=== PATIENT | male | born 1955 | race Caucasian/White ===

== ENCOUNTER 2016-09-08 22:27 | Emergency (ER) | payer MEDICARE, OTHER ==
[2016-09-08] MEDS ORDERED: FUROSEMIDE 40 MG SOL IV ONE (22:40)
[2016-09-08] MEDS ORDERED: SODIUM CHLORIDE 0.9% 1000ML 1,000 ML IV ONE (23:04)
[2016-09-08 23:06] LABS: BASOPHILS % (AUTO) 1 % (0-3); EOSINOPHILS % (AUTO) 3 % (0-9); HEMATOCRIT 29 % (39-53); MEAN CORPUSCULAR HGB CONC 35.2 gm/dl (32.0-36.0); MEAN CORPUSCULAR VOLUME 86 fL (80-100); MONOCYTES % (AUTO) 6.3 % (0-12); NEUTROPHILS % (AUTO) 78.8 % (37-80)
[2016-09-08] MEDS ORDERED: ACETAMINOPHEN 500 MG 500 MG TAB PO ONE (23:06)
[2016-09-08] MEDS ORDERED: OXYCODONE HYDROCHLORIDE 5 MG TAB PO ONE (23:06)
[2016-09-08] MEDS ORDERED: ACETAMINOPHEN 500 MG 500 MG TAB ONE (23:10)
[2016-09-08] MEDS ORDERED: SODIUM CHLORIDE 0.9% FLUSH 10 ML SOL IV PRN (23:13)
[2016-09-08] MEDS ORDERED: OXYCODONE HYDROCHLORIDE 5 MG TAB ONE (23:14)
[2016-09-08 23:21] LABS: CALCIUM 8.4 mg/dl (8.5-10.1); POTASSIUM 3.9 mMol/L (3.5-5.1)
[2016-09-08 23:22] VITALS: TEMP 98.8
[2016-09-08 23:23] LABS: THYROID STIMULATING HORMONE 6.251 uU/ml (0.358-3.740)
[2016-09-09 00:48] VITALS: BP 112/59; PULSE 61; RESP 20; O2SAT 95
== END 2016-09-09 00:50 | disposition short-term general hospital (02) | DRG 204 ==
LOC: ED 22:27
DX: R06.00 Dyspnea, unspecified (principal); E03.9 Hypothyroidism, unspecified; R60.9 Edema, unspecified; Z95.2 Presence of prosthetic heart valve; I51.7 Cardiomegaly; Z79.01 Long term (current) use of anticoagulants
CPT/HCPCS: 71010; 80053; 84443; 84484; 85025; 85610; 93005; 96365; 96366; 96374; 99285; J1940

== ENCOUNTER 2017-01-16 19:17 | Emergency (ER) | payer MEDICARE, OTHER ==
[2017-01-16] MEDS ORDERED: ONDANSETRON HCL 4 MG/2 ML SOL IV ONE ×2 (19:24→20:06)
[2017-01-16 19:33] LABS: BASOPHILS % (AUTO) 1 % (0-3); EOSINOPHILS % (AUTO) 2 % (0-9); HEMATOCRIT 35 % (39-53); MEAN CORPUSCULAR HGB CONC 34.6 gm/dl (32.0-36.0); MEAN CORPUSCULAR VOLUME 80 fL (80-100); MONOCYTES % (AUTO) 8.2 % (0-12); NEUTROPHILS % (AUTO) 78.7 % (37-80)
[2017-01-16 19:38] VITALS: TEMP 97.9
[2017-01-16] MEDS ORDERED: ONDANSETRON HCL 4 MG/2 ML SOL ONE ×2 (19:43→20:07)
[2017-01-16 19:49] LABS: CALCIUM 10.2 mg/dl (8.5-10.1); POTASSIUM 3.6 mMol/L (3.5-5.1)
[2017-01-16 23:27] VITALS: BP 116/68; PULSE 68; RESP 19; O2SAT 97
== END 2017-01-16 23:30 | disposition home or self-care (01) | DRG 293 ==
LOC: ED 19:17
DX: I50.9 Heart failure, unspecified (principal); R79.89 Other specified abnormal findings of blood chemistry
CPT/HCPCS: 36415; 71010; 80048; 83880; 84484; 85025; 93005; 96374; 99284; 99285; J2405

== ENCOUNTER 2018-04-03 12:47 | Inpatient (IN) | payer MEDICARE, OTHER ==
[2018-04-03] MEDS ORDERED: ACETAMINOPHEN 500 MG 500 MG TAB PO PRN (13:54)
[2018-04-03 15:16] LABS: INR 2.47 (0.86-1.12)
[2018-04-03] MEDS ORDERED: METOPROLOL TARTRATE 25 MG TAB PO SCH (16:00)
[2018-04-03] MEDS ORDERED: LORAZEPAM 0.5 MG TAB PO PRN (16:14)
[2018-04-03] MEDS ORDERED: TRAZODONE HYDROCHLORIDE 50 MG TAB PO PRN (16:14)
[2018-04-03] MEDS ORDERED: TORSEMIDE 10 MG TABLET ONE (17:01)
[2018-04-03] MEDS: TORSEMIDE 20 MG TAB PO SCH (17:04)
[2018-04-03] MEDS ORDERED: FERROUS SULFATE 325 MG PO SCH (17:30)
[2018-04-03] MEDS: FERROUS GLUCONATE 324 MG TABLET PO SCH (17:59)
[2018-04-03] MEDS ORDERED: WARFARIN SODIUM 5 MG TAB PO ONE (18:00)
[2018-04-03 18:22] LABS: BASOPHILS % (AUTO) 1 % (0-3); EOSINOPHILS % (AUTO) 1 % (0-9); HEMATOCRIT 33 % (39-53); HEMOGLOBIN 10.2 gm/dl (13.5-17.7); LYMPHOCYTES % (AUTO) 6.6 % (10-50); MEAN CORPUSCULAR HGB CONC 30.8 gm/dl (32.0-36.0); MEAN CORPUSCULAR VOLUME 85 fL (80-100); MONOCYTES % (AUTO) 8.1 % (0-12); NEUTROPHILS % (AUTO) 83.3 % (37-80)
[2018-04-03 18:41] LABS: ALBUMIN 3.7 gm/dl (3.4-5.0); BILIRUBIN,TOTAL 2.2 mg/dl (0.2-1.0); CALCIUM 9.1 mg/dl (8.5-10.1); CARBON DIOXIDE 28.3 mEq/L (21-32); CREATININE 1.83 mg/dl (0.80-1.30); THYROID STIMULATING HORMONE 2.604 uIU/ml (0.358-3.740); TOTAL PROTEIN 7.3 gm/dl (6.4-8.2)
[2018-04-03 20:12] LABS: ACANTHOCYTES PRESENT; ANISOCYTOSIS MOD AMT; BURR CELLS PRESENT; HYPOCHROMASIA SLIGHT AMT; OVALOCYTES PRESENT; POIKILOCYTOSIS MARKED AMT; TEAR DROP CELLS PRESENT
[2018-04-03] MEDS: POTASSIUM CHLORIDE 10 MEQ TER PO SCH (20:12)
[2018-04-03] MEDS: ALLOPURINOL 100 MG TAB PO SCH (20:12)
[2018-04-03] MEDS ORDERED: TORSEMIDE 20 MG TAB PO SCH (21:00)
[2018-04-03] MEDS ORDERED: ATORVASTATIN 10 MG TAB PO SCH ×2 (21:00)
[2018-04-03] MEDS ORDERED: GABAPENTIN 100 MG CAP PO SCH (21:00)
[2018-04-04 01:52] VITALS: O2SAT 98
[2018-04-04] MEDS ORDERED: LEVOTHYROXINE SODIUM 88 MCG PO SCH (07:00)
[2018-04-04 07:32] LABS: INR 2.14 (0.86-1.12)
[2018-04-04 08:02] VITALS: BP 98/71; PULSE 82; RESP 16; TEMP 97.9
[2018-04-04] MEDS ORDERED: TORSEMIDE 10 MG TABLET ONE (08:24)
[2018-04-04] MEDS: TORSEMIDE 20 MG TAB PO SCH (08:29)
[2018-04-04] MEDS: POTASSIUM CHLORIDE 10 MEQ TER PO SCH (08:29)
[2018-04-04] MEDS: FERROUS GLUCONATE 324 MG TABLET PO SCH (08:30)
[2018-04-04] MEDS: ALLOPURINOL 100 MG TAB PO SCH (08:30)
[2018-04-04] MEDS ORDERED: METOPROLOL TARTRATE 25 MG TAB PO SCH (09:00)
[2018-04-04] MEDS ORDERED: ASPIRIN 81 MG CHEWABLE CTB PO SCH (09:00)
[2018-04-04] MEDS ORDERED: Non-Formulary Medication MISC (Levothyroxine Sodium 88 Mcg 88 MCG) PO SCH (09:00)
[2018-04-04] MEDS ORDERED: SPIRONOLACTONE 25 MG TAB PO SCH (09:00)
[2018-04-04] MEDS ORDERED: SODIUM CHLORIDE 0.9% FLUSH 10 ML SOL IV SCH (09:30)
== END 2018-04-04 10:35 | disposition home or self-care (01) | DRG 293 ==
LOC: ACUTE CARE 13:02
PROVIDERS: ADMIT Family Medicine; ATTEND Family Medicine
DX: I50.9 Heart failure, unspecified (principal); R06.00 Dyspnea, unspecified; D64.9 Anemia, unspecified; R53.83 Other fatigue; G47.00 Insomnia, unspecified; R06.02 Shortness of breath
CPT/HCPCS: 36415; 71045; 80053; 82962; 84443; 84484; 85025; 85610; 93005; 93012; A9270-GY